=== PATIENT | female | born 1975 | race African-American/Black ===

== ENCOUNTER 2020-03-23 09:58 | Outpatient (CLI) | payer BC ==
--- NOTE | 2020-03-23 11:35 | ULT ---
RIGHT UPPER QUADRANT ULTRASOUND: INDICATION: Nausea, vomiting, right upper quadrant pressure for 3 months. FINDINGS: Visualized aspects of the pancreas are unremarkable-appearing. No focal hepatic lesion is evident. The visualized aspects of the gallbladder were normal-appearing. No sonographic Kwon's sign report ed. The common bile duct measured 3.6 mm. No sonographic Kwon's sign is reported. Respiratory ph asicity is seen within the main portal vein which is within normal limits. The right kidney measures 10.3 x 4.3 x 4.1 cm. No focal renal lesion or hydronephrosis is evident. IMPRESSION: No acute sonographic abnormality within the right upper quadrant of the abdomen. POS: [facility]
== END 2020-03-23 09:59 | disposition home or self-care (01) ==
LOC: BICULT 09:58
PROVIDERS: ATTEND Internal Medicine
DX: R10.11 Right upper quadrant pain (principal); R11.2 Nausea with vomiting, unspecified; D64.9 Anemia, unspecified
CPT/HCPCS: 76705

== ENCOUNTER 2023-07-26 21:33 | Emergency (ER) | payer BC, SELFPAY ==
[2023-07-26] MEDS ORDERED: Metoclopramide HCl 10 MG/2 ML VIAL ONE (22:03)
[2023-07-26] MEDS ORDERED: diphenhydrAMINE 50 MG/ML VIAL ONE (22:03)
[2023-07-26] MEDS ORDERED: Ketorolac Tromethamine 30 MG/ML VIAL ONE (22:03)
== END 2023-07-27 00:23 | disposition home or self-care (01) ==
LOC: ERS 21:33
DX: G43.909 Migraine, unspecified, not intractable, without status migrainosus (principal)
CPT/HCPCS: 96374; 96375; J1200; J1885; J2765